=== PATIENT | male | born 1975 | race Caucasian/White ===

== ENCOUNTER 2017-03-13 11:06 | Emergency (ER) | payer MEDICAID ==
[~2017-03-13] VITALS: Ht 165.1 cm; Wt 105.4 kg
[~2017-03-13 11:06] MED LIST: CYCL-319 PO; IBUP800T25 PO
[2017-03-13 11:08] VITALS: Ht 165.1 cm; Wt 105.4 kg
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
== END 2017-03-13 12:30 | disposition home or self-care (01) ==
LOC: FTE 11:06
DX: S00.93XA Contusion of unspecified part of head, initial encounter (principal); W22.8XXA Striking against or struck by other objects, initial encounter; Y92.9 Unspecified place or not applicable
CPT/HCPCS: 99283

== ENCOUNTER 2017-07-27 08:43 | Emergency (ER) | END 2017-07-27 11:42 | disposition home or self-care (01) ==

== ENCOUNTER 2017-12-17 19:00 | Emergency (ER) | END 2017-12-17 23:00 | disposition home or self-care (01) ==